=== PATIENT | female | born 1935 | race African-American/Black ===

== ENCOUNTER → 2023-05-22 | Day surgery (SDC) | payer OTHER | END | disposition home or self-care (01) | LOC: JRADIR 09:25 | PROVIDERS: ATTEND Internal Medicine Endocrinology, Diabetes & Metabolism | PROC: 0G9G3ZX Drainage of Left Thyroid Gland Lobe, Percutaneous Approach, Diagnostic (ICD-10-PCS; principal; 2023-05-22) | DX: E04.1 Nontoxic single thyroid nodule (principal) | CPT/HCPCS: 10005; 76942; 88173; 88305-TC ==

== ENCOUNTER → 2023-06-17 | Day surgery (SDC) | payer OTHER | END | disposition home or self-care (01) | LOC: JRADIR 10:26 | PROVIDERS: ATTEND Otolaryngology | PROC: 0CBJ3ZX Excision of Minor Salivary Gland, Percutaneous Approach, Diagnostic (ICD-10-PCS; principal; 2023-06-17) | DX: K11.20 Sialoadenitis, unspecified (principal) | CPT/HCPCS: 42400; 76942-TC; 88307-TC ==

== ENCOUNTER 2023-11-19 17:01 | Emergency (ER) | payer OTHER ==
[2023-11-19 17:14] VITALS: BMI 26.5
[2023-11-19] MEDS ORDERED: LIDOCAINE 4% PATCH TP ONE (17:52)
[2023-11-19] MEDS ORDERED: ACETAMINOPHEN 325 MG TABLET (FP) ONE (17:52)
[2023-11-19] MEDS: LIDOCAINE 5% TOPICAL PATCH TP ONE (17:57)
[2023-11-19] MEDS: ACETAMINOPHEN 500 MG TABLET (FP) PO ONE (17:57)
[2023-11-19 19:34] VITALS: BP 137/75; PULSE 76; RESP 17; TEMP 97.5
[2023-11-19] MEDS ORDERED: LIDOCAINE PATCH REMOVAL MC SCH (22:00)
== END 2023-11-19 19:41 | disposition home or self-care (01) ==
LOC: JER 17:01
DX: S00.12XA Contusion of left eyelid and periocular area, initial encounter (principal); S00.81XA Abrasion of other part of head, initial encounter; M54.2 Cervicalgia; M25.511 Pain in right shoulder; R42 Dizziness and giddiness; W01.198A Fall on same level from slipping, tripping and stumbling with subsequent striking against other object, initial encounter
CPT/HCPCS: 70450-TC; 70486-TC; 72125-TC; 73030-TC-RT-FY; 93005; 93010; 99285-25